=== PATIENT | female | born 1995 | race Two or more races ===

== ENCOUNTER 2017-11-04 13:21 | Outpatient (CLI) | payer OTHER ==
[2017-11-04 13:43] LABS: HEMATOCRIT 41.2 % (41.0-60); HEMOGLOBIN 13.6 gm/dL (12-16); MEAN CELL VOLUME 78.2 fl (81-100); MEAN CORPUSCULAR HEMOGLOBIN 25.9 pg (27.0-31.0); MEAN CORPUSCULAR HGB CONC 33.1 pg (28.0-36.0); MEAN PLATELET VOLUME 7.9 fl; PLATELET COUNT 278 Th/cmm (150-400); RED BLOOD COUNT 5.27 Mil/cmm (3.80-5.10); RED CELL DISTRIBUTION WIDTH 13.4 % (11.5-20.0)
[2017-11-04 13:43] LABS: URINE SOURCE RANDOM
[2017-11-04 13:45] LABS: WHITE BLOOD COUNT 3.6 Th/cmm (4.8-10.8)
[2017-11-04 13:55] LABS: ALB/GLOB RATIO 1.8 (1.0-1.8); ALBUMIN 4.7 gm/dL (3.7-5.3); ALKALINE PHOSPHATASE 57 U/L (34-104); ANION GAP 10.8 (7.0-16.0); BILIRUBIN,TOTAL 0.9 mg/dL (0.3-1.0); BUN - UREA NITROGEN 15 mg/dL (7-25); CALCIUM SERUM 9.9 mg/dL (8.6-10.3); CARBON DIOXIDE 25.5 mEq/L (21.0-31.0); CHLORIDE 102 mEq/L (98-107); CHOLESTEROL 217 mg/dL (<200); CREATININE - SERUM 0.7 mg/dL (0.6-1.2); GFR AFRICAN-AMERICAN > 60.0 ml/min (>90); GFR NON AFRICAN-AMERICAN > 60.0 ml/min; GLUCOSE 86 mg/dL (70-105); HDL -HIGH DENSITY LIPOPROTEIN 72 mg/dL (23-92); POTASSIUM SERUM 4.3 mEq/L (3.5-5.1); SGOT 19 U/L (13-39); SGPT/ALT 14 U/L (7-52); SODIUM SERUM 134 mEq/L (136-145); TOTAL PROTEIN,SERUM 7.3 gm/dL (6.0-8.3); TRIGLYCERIDES 49 mg/dL (<150)
[2017-11-04 13:56] LABS: URINE BILIRUBIN NEGATIVE (NEGATIVE); URINE BLOOD NEGATIVE (NEGATIVE); URINE CLARITY CLEAR (CLEAR); URINE COLOR YELLOW; URINE GLUCOSE (UA) NEGATIVE (NEGATIVE); URINE ICTOTEST NEGATIVE (NEGATIVE); URINE KETONE NEGATIVE (NEGATIVE); URINE LEUKOCYTE ESTERASE NEGATIVE (NEGATIVE); URINE MICROSCOPIC INDICATED? NO; URINE NITRATE NEGATIVE (NEGATIVE); URINE PH 6.5 (4.6 - 8.0); URINE PROTEIN NEGATIVE (NEGATIVE); URINE UROBILINOGEN 0.2 E.U./dL (0.2 - 1.0)
[2017-11-04 14:22] LABS: BAND NEUTROPHILE 0 % (0-10); BASOPHIL 1 % (0-3); EOSINOPHIL 4 % (0-5); LYMPHOCYTE 54 % (20-50); MONOCYTE 5 % (2-10); NEUTROPHILS 36 % (40-80)
== END 2017-11-04 13:40 ==
LOC: EEVIPCON 13:21 → LAB 13:21
DX: Z00.01 Encounter for general adult medical examination with abnormal findings (principal)
CPT/HCPCS: 36415-UA; 80053-TC; 80061-TC; 81003-TC; 82652-90; 84439-90; 84443-TC; 85007-TC; 85025-TC